=== PATIENT | male | born 1960 | race African-American/Black ===

== ENCOUNTER 2017-03-16 14:26 | Observation (INO) | payer OTHER ==
[2017-03-16] VITALS (7 sets, daily range): BP systolic 136–152; BP diastolic 87–109; PULSE 54–68; RESP 18; TEMP 98.3–98.4; O2SAT 97–98
[~2017-03-16] VITALS: Ht 180.3 cm; Wt 95.0 kg
[~2017-03-16 14:26] MED LIST: ALLO100T PO; AMLO10 PO; GABA300C5 PO; LEVO100T5 PO; METO100T PO; VIAG100T PO
[2017-03-16] MEDS ORDERED: SODIUM CHLORIDE 0.9% FLUSH 10 ML FLUSH IVF PRN (14:45)
--- NOTE | 2017-03-16 14:50 | PD ---
HPI Chief Complaint: Chest Pain Time Seen by Provider: 15:58 Travel History International Travel<30 days: No Contact w/Intl Traveler<30days: No Traveled to known affect area: No History of Present Illness HPI 56- year old male brought to the ED by EVAC complaining of chest pain. The patient reports that his chest pain started while at work around noon. He reports at that time he felt a chest tightness, started with perfuse sweating, and shortness of breath. He reports he then went to the ID who said he should be brought here. While at the ID the patient received one nitroglycerin and four baby aspirin. The patient reports currently he does not have any chest tightness or shortness of breath. The patient received another nitroglycerin by EVAC en route to the hospital. He reports his chest pain is a 2/10 currently. The patient reports he has a medical history of HTN and enlarged heart. He reports occasional marijuana use, but denies any alcohol or smoking. PFSH Past Medical History Heart Rhythm Problems: Yes (MURMUR ) Cancer: No Cardiac Catheterization: No Cardiomyopathy: Yes Cardiovascular Problems: Yes High Cholesterol: No Chest Pain: Yes Congestive Heart Failure: No Coronary Artery Disease: Yes Diabetes: No Diminished Hearing: No Endocrine: No Genitourinary: No Heparin Induced Thrombocytopen: No Hypertension: Yes Immune Disorder: Yes (g6pd(SICLE CEWLL TRAIT) ) Musculoskeletal: No Neurologic: Yes Psychiatric: No Reproductive: No Respiratory: No Past Surgical History Coronary Artery Bypass Graft: No Other Surgery: Yes Family History Family Myocardial Infarction: Yes Social History Alcohol Use: Yes (OCC BEER) Tobacco Use: No Substance Use: No (MARAJUIANA ) Allergies-Medications (Allergen,Severity, Reaction): Coded Allergies: No Known Allergies (Unverified , 03/16/17) Reported Meds & Prescriptions Reported Meds & Active Scripts Active Reported Metoprolol Tartrate 100 Mg Tab 100 Mg PO BID Viagra (Sildenafil Citrate) 100 Mg Tab 100 Mg PO DAILY PRN Norvasc (Amlodipine Besylate) 10 Mg Tab 10 Mg PO DAILY Levothyroxine (Levothyroxine Sodium) 100 Mcg Tab 100 Mcg PO DAILY Gabapentin 300 Mg Cap 300 Mg PO TID Allopurinol 100 Mg Tab 100 Mg PO DAILY Review of Systems General / Constitutional: No: Fever, Chills, Weight Gain, Weight Loss, Other Eyes: No: Diploplia, Blurred Vision, Photophobia, Drainage, Redness, Foreign Body Sensation, Pain, Tearing, Blind Spots, Visual changes, Blindness, Other HENT: Positive: Headaches, No: Vertigo, Lightheadedness, Sore Throat, Rhinitis , Rhinorrhea, Congestion, Nosebleed, Neck Stiffness, Neck Pain, Masses, Gingival Bleeding, Dental Difficulties, Ear Discharge, Earache, Other Cardiovascular: Positive: Chest Pain or Discomfort, No: Palpitations, Irregular Rhythm, Tachycardia, Diaphoresis, Syncope, Dyspnea on exertion, Varicosities, Edema, Cyanosis, Varicosities, Phlebitis, Claudication, Other Respiratory: No: Cough, Shortness of Breath, Wheezing, Sneezing, Orthopnea, Hemoptysis, Stridor, Night Sweats, Pleuritic Pain, Other Gastrointestinal: No: Nausea, Vomiting, Diarrhea, Abdominal Pain, Hematemesis, Hematochezia, Constipation, Changes in Bowel Habits, Indigestion, Dysphagia, Loss of Appetite, Other Genitourinary: No: Urgency, Frequency, Dysuria, Nocturia, Hematuria, Decreased Urinary Output, Oliguria, Hesitancy, Dribbling, Incontinence, Pelvic Pain, Flank Pain, Dyspareunia, Discharge, Dysmenorrhea, Menorrhagia, Metorrhagia, Vaginal Bleeding, Other Musculoskeletal: No: Myalgias, Arthralgias, Limited ROM, Weakness, Cramping, Edema, Pain, Atrophy, Other Skin: No Rash, No Itching, No Dryness, No Lumps, No Hives, No Change in Pigmentation, No Change in nails, No Alopecia, No Lesions, No Breast Lumps, No Breast Tenderness, No Breast Swelling, No Other Neurologic: No: Weakness, Dizziness, Syncope, Focal Abnormalities, Coordination Problem, Tremor, Ataxia, Headache, Change in Mentation, Slurred Speech, Paresthesia, Incontinence, Seizures, Sensory Disturbance, Other Psychiatric: No: Anxiety, Depression, Suicidal Ideations, Disorder of Thought, Mood Disorder, Substance Abuse, Homicidal Ideation, Other Endocrine: No: Heat Intolerance, Cold Intolerance, Polyuria, Polydipsia, Other Hematologic/Lymphatic: No: Easy Bruising, Lymph Node Enlargement, Other Physical Exam Narrative GENERAL: SKIN: Warm and dry. HEAD: Atraumatic. Normocephalic. EYES: Pupils equal and round. No scleral icterus. No injection or drainage. ENT: No nasal bleeding or discharge. Mucous membranes pink and moist. Tongue is midline. No uvula deviation. NECK: Trachea midline. No JVD. CARDIOVASCULAR: Regular rate and rhythm. No S3, S4, murmurs, rubs, clicks, or gallops. Chest pain is not reproducible with touch. RESPIRATORY: No accessory muscle use. Clear to auscultation. Breath sounds equal bilaterally. GASTROINTESTINAL: Abdomen soft, non-tender, nondistended. Hepatic and splenic margins not palpable. MUSCULOSKELETAL: Tender to palpation over chest. Extremities without clubbing, cyanosis, or edema. No obvious deformities. Full range of motion of the upper and lower extremities bilaterally. 2+ pulses bilaterally. NEUROLOGICAL: Awake and alert. No obvious cranial nerve deficits. Motor grossly within normal limits. Five out of 5 muscle strength in the arms and legs. Normal speech. PSYCHIATRIC: Appropriate mood and affect; insight and judgment normal. Data Data Last Documented VS Vital Signs Date Time Temp Pulse Resp B/P Pulse Ox O2 Delivery O2 Flow Rate FiO2 03/16/17 14:43 62 18 99 Room Air 03/16/17 14:33 98.3 142/87 Orders Electrocardiogram (03/16/17 14:35) Basic Metabolic Panel (Bmp) (03/16/17 14:35) Ckmb (Isoenzyme) Profile (03/16/17 14:35) Complete Blood Count With Diff (03/16/17 14:35) Magnesium (Mg) (03/16/17 14:35) Prothrombin Time / Inr (Pt) (03/16/17 14:35) Act Partial Throm Time (Ptt) (03/16/17 14:35) Troponin I (03/16/17 14:35) Lipase (03/16/17 14:35) Chest, Single Ap (03/16/17 14:35) Ecg Monitoring (03/16/17 14:35) Bilateral Bp Monitoring (03/16/17 14:35) Iv Access Insert/Monitor (03/16/17 14:35) Oximetry (03/16/17 14:35) Oxygen Administration (03/16/17 14:35) Sodium Chloride 0.9% Flush (Ns Flush) (03/16/17 14:45) B-Type Natriuretic Peptide (03/16/17 14:36) Morphine Inj (Morphine Inj) (03/16/17 15:30) Ondansetron Inj (Zofran Inj) (03/16/17 15:30) CKMB (03/16/17 14:50) CKMB% (03/16/17 14:50) Admit Order (Ed Use Only) (03/16/17 15:56) Labs Laboratory Tests Test 03/16/17 14:50 White Blood Count 7.8 TH/MM3 Red Blood Count 4.52 MIL/MM3 Hemoglobin 13.7 GM/DL Hematocrit 41.2 % Mean Corpuscular Volume 91.1 FL Mean Corpuscular Hemoglobin 30.4 PG Mean Corpuscular Hemoglobin 33.4 % Concent Red Cell Distribution Width 13.4 % Platelet Count 220 TH/MM3 Mean Platelet Volume 10.7 FL Neutrophils (%) (Auto) 72.3 % Lymphocytes (%) (Auto) 18.3 % Monocytes (%) (Auto) 5.7 % Eosinophils (%) (Auto) 2.9 % Basophils (%) (Auto) 0.8 % Neutrophils # (Auto) 5.7 TH/MM3 Lymphocytes # (Auto) 1.4 TH/MM3 Monocytes # (Auto) 0.4 TH/MM3 Eosinophils # (Auto) 0.2 TH/MM3 Basophils # (Auto) 0.1 TH/MM3 CBC Comment DIFF FINAL Differential Comment Prothrombin Time 11.3 SEC Prothromb Time International 1.0 RATIO Ratio Activated Partial 28.3 SEC Thromboplast Time Sodium Level 141 MEQ/L Potassium Level 3.8 MEQ/L Chloride Level 105 MEQ/L Carbon Dioxide Level 29.2 MEQ/L Anion Gap 7 MEQ/L Blood Urea Nitrogen 18 MG/DL Creatinine 2.09 MG/DL Estimat Glomerular Filtration 40 ML/MIN Rate Random Glucose 89 MG/DL Calcium Level 8.6 MG/DL Magnesium Level 2.2 MG/DL Total Creatine Kinase 194 U/L Creatine Kinase MB 2.6 NG/ML Troponin I 0.02 NG/ML B-Type Natriuretic Peptide 40 PG/ML Lipase 132 U/L [facility] Medical Decision Making Medical Screen Exam Complete: Yes Emergency Medical Condition: Yes Medical Record Reviewed: Yes Interpretation(s) CBC & BMP Diagram 03/16/17 14:50 troponin and CKMB negative Last Impressions Chest X-Ray 03/16/17 8025 Signed Impressions: Service Date/Time: Thursday, March 16, 2017 14:42 - CONCLUSION: Mild left ventricular hypertrophy otherwise negative. Kodi Rowan MD FACR lipase WNL EKG shows no changes from prior in 2016. Read by me and attending. Differential Diagnosis Chest pain versus ACS versus [place] versus costochondritis versus angina Narrative Course 56-year-old male that presents to the ED for evaluation of chest pain. Patient was properly examined and was found to have signs and symptoms concerning for cardiac chest pain. He does have risk factors. Case discussed in my attending Dr Dubois who agrees with plan. Labs and imaging were essentially negative. Patient was already given aspirin and nitroglycerin and is currently for the most part chest pain free. Patient was told of admission for chest pain center and agrees with this plan. Patient was admitted for chest pain center. Procedures EKG Prior to Arrival: No Diagnosis Primary Impression: Chest pain Qualified Code: R07.9 - Chest pain, unspecified type Admitting Information Admitting Physician Requests: Observation Connor Banegas Mar 16, 2017 14:50
[2017-03-16 15:22] LABS: AUTOMATED NEUTROPHIL # 5.7 TH/MM3 (1.8-7.7); BASOPHIL # 0.1 TH/MM3 (0-0.2); BASOPHIL % 0.8 % (0.0-2.0); EOSINOPHIL # 0.2 TH/MM3 (0-0.4); EOSINOPHIL % 2.9 % (0.0-4.0); HEMATOCRIT 41.2 % (39.0-51.0); HEMO FLAGS DIFF FINAL; LYMPH % 18.3 % (9.0-44.0); LYMPHOCYTE # 1.4 TH/MM3 (1.0-4.8); MEAN CELL VOLUME 91.1 FL (80.0-100.0); MEAN CORPUSCULAR HEMOGLOBIN 30.4 PG (27.0-34.0); MEAN CORPUSCULAR HGB CONC 33.4 % (32.0-36.0); MONO % 5.7 % (0.0-8.0); NEUT % 72.3 % (16.0-70.0); PLATELET COUNT 220 TH/MM3 (150-450); RED BLOOD COUNT 4.52 MIL/MM3 (4.50-5.90); RED CELL DISTRIBUTION WIDTH 13.4 % (11.6-17.2); WHITE BLOOD COUNT 7.8 TH/MM3 (4.0-11.0)
[2017-03-16] MEDS ORDERED: MORPHINE SULFATE 4 MG/ML INJ IV PUSH ONE (15:30)
[2017-03-16] MEDS ORDERED: ONDANSETRON HCL 4 MG/2 ML VIAL IV PUSH ONE (15:30)
[2017-03-16 15:31] LABS: ANION GAP 7 MEQ/L (5-15); BICARBONATE 29.2 MEQ/L (21.0-32.0); BLOOD UREA NITROGEN 18 MG/DL (7-18); CHLORIDE 105 MEQ/L (98-107); GLOMERULAR FILTRATION RATE 40 ML/MIN (>89); MAGNESIUM 2.2 MG/DL (1.5-2.5); POTASSIUM 3.8 MEQ/L (3.5-5.1); SODIUM (NA) 141 MEQ/L (136-145)
[2017-03-16 15:32] LABS: APTT (PATIENT) 28.3 SEC (24.3-30.1); PROTHROMBIN TIME - PATIENT 11.3 SEC (9.8-11.6)
[2017-03-16 15:35] LABS: CREATINE KINASE 194 U/L (39-308)
--- NOTE | 2017-03-16 15:35 | RADRPT ---
EXAM DATE/TIME: 03/16/2017 14:42 [facility] COMPARISON: CHEST SINGLE AP, November 08, 2015, 13:45. INDICATIONS : Chest pain since this afternoon. MEDICAL HISTORY : Hypertension. Hypertension. SURGICAL HISTORY : None. ENCOUNTER: Initial ACUITY: 1 day PAIN SCORE: 7/10 LOCATION: Bilateral chest FINDINGS: A single view of the chest demonstrates the lungs to be symmetrically aerated without evidence of mas s, infiltrate or effusion. Mild prominence the cardiac silhouette.. Osseous structures are intact. CONCLUSION: Mild left ventricular hypertrophy otherwise negative. Kodi Rowan MD FACR on March 16, 2017 at 15:33 Board Certified Radiologist. This report was verified electronically.
[2017-03-16 15:47] LABS: CKMB 2.6 NG/ML (0.5-3.6)
--- NOTE | 2017-03-16 16:14 | PD ---
Data Data Last Documented VS Vital Signs Date Time Temp Pulse Resp B/P Pulse Ox O2 Delivery O2 Flow Rate FiO2 03/16/17 14:43 62 18 99 Room Air 03/16/17 14:33 98.3 142/87 Orders Electrocardiogram (03/16/17 14:35) Basic Metabolic Panel (Bmp) (03/16/17 14:35) Ckmb (Isoenzyme) Profile (03/16/17 14:35) Complete Blood Count With Diff (03/16/17 14:35) Magnesium (Mg) (03/16/17 14:35) Prothrombin Time / Inr (Pt) (03/16/17 14:35) Act Partial Throm Time (Ptt) (03/16/17 14:35) Troponin I (03/16/17 14:35) Lipase (03/16/17 14:35) Chest, Single Ap (03/16/17 14:35) Ecg Monitoring (03/16/17 14:35) Bilateral Bp Monitoring (03/16/17 14:35) Iv Access Insert/Monitor (03/16/17 14:35) Oximetry (03/16/17 14:35) Oxygen Administration (03/16/17 14:35) Sodium Chloride 0.9% Flush (Ns Flush) (03/16/17 14:45) B-Type Natriuretic Peptide (03/16/17 14:36) Morphine Inj (Morphine Inj) (03/16/17 15:30) Ondansetron Inj (Zofran Inj) (03/16/17 15:30) CKMB (03/16/17 14:50) CKMB% (03/16/17 14:50) Admit Order (Ed Use Only) (03/16/17 15:56) Labs Laboratory Tests Test 03/16/17 14:50 White Blood Count 7.8 TH/MM3 Red Blood Count 4.52 MIL/MM3 Hemoglobin 13.7 GM/DL Hematocrit 41.2 % Mean Corpuscular Volume 91.1 FL Mean Corpuscular Hemoglobin 30.4 PG Mean Corpuscular Hemoglobin 33.4 % Concent Red Cell Distribution Width 13.4 % Platelet Count 220 TH/MM3 Mean Platelet Volume 10.7 FL Neutrophils (%) (Auto) 72.3 % Lymphocytes (%) (Auto) 18.3 % Monocytes (%) (Auto) 5.7 % Eosinophils (%) (Auto) 2.9 % Basophils (%) (Auto) 0.8 % Neutrophils # (Auto) 5.7 TH/MM3 Lymphocytes # (Auto) 1.4 TH/MM3 Monocytes # (Auto) 0.4 TH/MM3 Eosinophils # (Auto) 0.2 TH/MM3 Basophils # (Auto) 0.1 TH/MM3 CBC Comment DIFF FINAL Differential Comment Prothrombin Time 11.3 SEC Prothromb Time International 1.0 RATIO Ratio Activated Partial 28.3 SEC Thromboplast Time Sodium Level 141 MEQ/L Potassium Level 3.8 MEQ/L Chloride Level 105 MEQ/L Carbon Dioxide Level 29.2 MEQ/L Anion Gap 7 MEQ/L Blood Urea Nitrogen 18 MG/DL Creatinine 2.09 MG/DL Estimat Glomerular Filtration 40 ML/MIN Rate Random Glucose 89 MG/DL Calcium Level 8.6 MG/DL Magnesium Level 2.2 MG/DL Total Creatine Kinase 194 U/L Creatine Kinase MB 2.6 NG/ML Troponin I 0.02 NG/ML B-Type Natriuretic Peptide 40 PG/ML Lipase 132 U/L [facility] Supervised Visit with RITA: Yes Narrative Course The history, exam, and medical decision-making in the associated midlevel provider note were completed with my assistance. I reviewed and agree with the findings presented. I attest that I had a [id number] encounter with the patient on the same day, and personally performed and documented my assessment and findings in the medical record. *My assessment and Findings: This is a 56-year-old male who presents to the emergency department with chest discomfort that started at work today with diaphoresis and shortness of breath. Patient has an abnormal EKG which is unchanged from prior with ST depressions in the lateral leads. Troponin is normal. His last stress test was in November 2015. I think he requires serial cardiac enzymes and possible further risk stratification given the description of his symptoms. Diagnosis Primary Impression: Chest pain Qualified Code: R07.9 - Chest pain, unspecified type Carmita Dubois MD Mar 16, 2017 16:14
[2017-03-16] MEDS ORDERED: NITROGLYCERIN 0.4 MG SL 25 TABS/BTL SL PRN (16:30)
[2017-03-16] MEDS ORDERED: ONDANSETRON HCL 4 MG/2 ML VIAL IV PRN (16:30)
[2017-03-16] MEDS ORDERED: ACETAMINOPHEN 500 MG CPLT PO PRN (16:30)
--- NOTE | 2017-03-16 18:19 | HHI.HP ---
HPI Primary Care Physician [facility] Chief Complaint Chest pain History of Present Illness 56-year-old male with history of hypertension, renal insufficiency, and cardiomegaly presents to the emergency room for further evaluation of chest pain. Onset 12 PM. Location left anterior chest. Characterized as tightness. Severity 8/10. No radiation of pain. Duration 812 minutes. Associated symptoms included nausea, diaphoresis, and shortness of breath. Denies vomiting. No known precipitating factors. Relieving factors include aspirin and time. Denies any current chest pain or pressure. Endorses similar pain in the past. Drove himself to [facility] for [facility]. [facility] to transport to ER. Review of Systems General: Fatigue approximately 6 weeks, otherwise in his general health. No recent illness, fever, chills, or use of antibiotics. HEENT: Current headache relates to nitroglycerin given by EMS. No vision changes, no nasal congestion or drainage, or history of frequent headaches. CV: As stated above. No current chest tightness, CP, or pressure. No palpitations or dizziness. RESP: No SOB, cough, wheeze, history or COPD or asthma. GI: No nausea, vomiting, bowel changes, diarrhea, constipation, pain, distention , melena, or blood in the stool. No change in appetite, no unintentional weight gain or weight loss. : No dysuria, urgency, or frequency EXT: Remote injury to left hand due to electrocution with residual weakness in third, fourth, and fifth digits. No lower leg edema, no paraesthesias MS: No discomfort, change in Edmundo, injury, or trauma. NEURO: Syncopal event 2 weeks ago after exiting shower. No precipitating symptoms, no past syncopal events, stating "I woke up on the floor and didn't know what happened." No change in memory, difficulty with balance, LOC, motor/ sensory deficits PSYCH: No anxiety, depression, or relational stress Past Family Social History Allergies: Coded Allergies: No Known Allergies (Unverified , 03/16/17) Past Medical History Hypertension, cardiomegaly, hypothyroidism, renal insufficiency, gout, left hand electrocution Past Surgical History Left Achillis tendon repair Reported Medications Active Reported Metoprolol Tartrate 100 Mg Tab 100 Mg PO BID Viagra (Sildenafil Citrate) 100 Mg Tab 100 Mg PO DAILY PRN Norvasc (Amlodipine Besylate) 10 Mg Tab 10 Mg PO DAILY Levothyroxine (Levothyroxine Sodium) 100 Mcg Tab 100 Mcg PO DAILY Allopurinol 100 Mg Tab 100 Mg PO DAILY Active Ordered Medications Current Medications Medications (Trade) Dose Ordered Sig/Harjit Route Start Time Stop Time Status Last Admin (NS Flush) 2 ml UNSCH PRN IVF 03/16/17 14:45 (Tylenol) 500 mg Q4H PRN PO 03/16/17 16:30 (Zofran Inj) 4 mg Q6H PRN IV 03/16/17 16:30 (Nitrostat Sl) 0.4 mg Q5M PRN SL 03/16/17 16:30 (Aspirin) 325 mg DAILY PO 03/17/17 09:00 Family History Noncontributory for early onset cardiovascular disease. Father and mother developed coronary artery disease in their late 60s. Social History Known hypertension. No known diabetes, hyperlipidemia, or personal coronary artery disease. Lifelong nonsmoker. Denies any alcohol use. Endorses occasional marijuana use. Endorses an active lifestyle. 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 Past cardiac testing 11/09/2015 Nuclear ETT-unremarkable, no signs of stress-induced ischemia. 07/12/2014 Nuclear ETTno infarct, ischemia, or focal wall motion abnormality No past cardiac catheterizations. Physical Exam Vital Signs Vital Signs Date Time Temp Pulse Resp B/P Pulse Ox O2 Delivery O2 Flow Rate FiO2 03/16/17 17:23 18 03/16/17 16:46 68 18 150/109 98 Room Air 141/92 03/16/17 16:44 68 18 150/109 98 Room Air 03/16/17 16:24 21 03/16/17 14:43 62 18 99 Room Air 03/16/17 14:41 99 Room Air 03/16/17 14:33 98.3 66 18 142/87 97 Physical Exam GENERAL: Alert WN, WD, NAD, pleasant, male HEAD: NC, AT EYES: Sclera clear, conjunctiva without injection, pupils equal and round ENT: Mucous membranes pink and moist, no nasal discharge or bleeding CV: RRR, 2/6 systolic murmur, no rub, no gallop, no JVD, S1-S2 no S3-S4. RESP: Clear lungs throughout bilateral, no crackles, wheeze, rhonchi, symmetrical chest rise, nonlabored, able to speak in full sentences ABD: Soft, NT, ND, no masses, positive bowel tones EXT: Pulses +24, no dependent edema MS: Normal tone 4 extremities, nontender, no obvious deformities, full range of motion, slight limitation with movement to left third, fourth, fifth digits NEURO: CN II through CN XII grossly intact, motor strength 5/5, PSYCH: A+O 3, pleasant affect, appropriate speech, appropriate mood and affect , insight and judgment SKIN: Normal turgor, normal texture, no lesions, no rashes, brisk cap refill, even hair distribution Laboratory Laboratory Tests Test 03/16/17 14:50 White Blood Count 7.8 Red Blood Count 4.52 Hemoglobin 13.7 Hematocrit 41.2 Mean Corpuscular Volume 91.1 Mean Corpuscular Hemoglobin 30.4 Mean Corpuscular Hemoglobin 33.4 Concent Red Cell Distribution Width 13.4 Platelet Count 220 Mean Platelet Volume 10.7 Neutrophils (%) (Auto) 72.3 Lymphocytes (%) (Auto) 18.3 Monocytes (%) (Auto) 5.7 Eosinophils (%) (Auto) 2.9 Basophils (%) (Auto) 0.8 Neutrophils # (Auto) 5.7 Lymphocytes # (Auto) 1.4 Monocytes # (Auto) 0.4 Eosinophils # (Auto) 0.2 Basophils # (Auto) 0.1 CBC Comment DIFF FINAL Differential Comment Prothrombin Time 11.3 Prothromb Time International 1.0 Ratio Activated Partial 28.3 Thromboplast Time Sodium Level 141 Potassium Level 3.8 Chloride Level 105 Carbon Dioxide Level 29.2 Anion Gap 7 Blood Urea Nitrogen 18 Creatinine 2.09 Estimat Glomerular Filtration 40 Rate Random Glucose 89 Calcium Level 8.6 Magnesium Level 2.2 Total Creatine Kinase 194 Creatine Kinase MB 2.6 Troponin I 0.02 B-Type Natriuretic Peptide 40 Lipase 132 Result Diagram: 03/16/17 1450 03/16/17 1450 Imaging Last Impressions Chest X-Ray 03/16/17 1435 Signed Impressions: Service Date/Time: Thursday, March 16, 2017 14:42 - CONCLUSION: Mild left ventricular hypertrophy otherwise negative. Kodi Rowan MD FACR Course EKG Normal sinus rhythm, criteria for LVH, anterior lateral changes most likely related to LVH Assessment and Plan Assessment and Plan #1 Chest painadmitted to chest pain center. Ruled out with 3 sets of EKGs, cardiac enzymes, and monitor overnight. Will be seen and evaluated by Dr. Kristine Mukherjee in a.m. Most likely complete exercise stress test in the a.m. This is been discussed with patient he is agreeable to plan of care. #2 Hypertensioncontinue amlodipine, encouraged low sodium diet and increasing his daily activity as able #3 Cardiomegaly-continue metoprolol #4 HypothyroidismTSH lab draw, continue levothyroxine #5 Goutcontinue allopurinol #6 Renal insufficiencyslightly elevated from last documented creatinine at this facility, patient states current creatinine level is his baseline. Follow with PCP. #7 Syncopal episode-episode occurred 2 weeks ago, denies any additional syncopal episodes, near syncopal episodes, or dizziness, follow-up with PCP. Kathleen Wells Mar 16, 2017 18:19
[2017-03-16 19:08] LABS: CREATINE KINASE 131 U/L (39-308)
[2017-03-16 19:20] LABS: CKMB 2.2 NG/ML (0.5-3.6)
[2017-03-16] MEDS: METOPROLOL TARTRATE 100 MG TAB PO SCH (20:42)
[2017-03-16 22:08] LABS: CREATINE KINASE 166 U/L (39-308)
[2017-03-16 22:21] LABS: CKMB 2.3 NG/ML (0.5-3.6)
[2017-03-17] VITALS: BP 160/70; PULSE 74; RESP 18; TEMP 98.4; O2SAT 98
[2017-03-17 04:09] VITALS: BP 138/95; PULSE 67; RESP 18; TEMP 98.1; O2SAT 97
[2017-03-17 05:38] VITALS: O2SAT 98
[2017-03-17] MEDS ORDERED: LEVOTHYROXINE SODIUM 100 MCG TAB PO SCH (06:00)
[2017-03-17 07:20] VITALS: PULSE 50
[2017-03-17 07:25] VITALS: BP 142/91; PULSE 51; RESP 16; TEMP 98.5; O2SAT 97
[2017-03-17] MEDS ORDERED: ALLOPURINOL 100 MG TAB PO SCH (09:00)
[2017-03-17] MEDS: METOPROLOL TARTRATE 100 MG TAB PO SCH (09:00)
[2017-03-17] MEDS ORDERED: ASPIRIN 325 MG TAB PO SCH (09:00)
[2017-03-17] MEDS ORDERED: MORPHINE SULFATE 4 MG/ML INJ IV PUSH ONE (09:00)
[2017-03-17] MEDS ORDERED: REGADENOSON INJ 0.4 MG/5 ML SYR ONE ×2 (12:03→12:12)
--- NOTE | 2017-03-17 13:45 | RADRPT ---
EXAM DATE/TIME: 03/17/2017 11:24 [facility] COMPARISON: MYOCARDIAL PERF TREADMILL SPECT, GATED W/EF, November 09, 2015, 8:32. INDICATIONS : Angina. DOSE: 27.2 mCi Tc99m Myoview at stress. 8.6 mCi Tc99m Myoview at rest. 0.4 mg Lexiscan STRESS SYMPTOMS: heart racing and dyspnea. EJECTION FRACTION: 52% MEDICAL HISTORY : Hypertension. SURGICAL HISTORY : None. ENCOUNTER: Initial ACUITY: 1 day PAIN SCALE: 1/10 LOCATION: Bilateral chest TECHNIQUE: The patient underwent pharmacologic stress with infusion of prescribed dose. Continuous ECG tracing was monitored during stress. Gated SPECT imaging was performed after stress and conventional SPECT i maging was performed at rest. The examination was performed on a SPECT/CT scanner, both attenuation and non-corrected datasets were reviewed. FINDINGS: DISTRIBUTION: The maximum perfused segment at stress is in the anterolateral wall. PERFUSION STUDY: The pattern of perfusion at stress is within normal limits. GATED STUDY: There is intact wall motion and thickening without hypokinetic or dyskinetic segments. CONCLUSION: 1. No reversible perfusion defect to suggest stress-induced myocardial ischemia RISK CATEGORY: Low (<1% Annual Mortality Rate) Viktor Rowan MD on March 17, 2017 at 13:42 Board Certified Radiologist. This report was verified electronically.
--- NOTE | 2017-03-17 14:19 | HHI.DCPOC ---
Discharge Care Plan Diagnosis: (1) Chest pain (2) Hypertension (3) Renal insufficiency (4) Hypothyroidism Goals to Promote Your Health * To prevent worsening of your condition and complications * To maintain your health at the optimal level Directions to Meet Your Goals Take your medications as prescribed Follow your dietary instruction Follow activity as directed Keep your appointments as scheduled Take your immunizations and boosters as scheduled If your symptoms worsen call your PCP, if no PCP go to Urgent Care Center or Emergency Room Smoking is Dangerous to Your Health. Avoid second hand smoke Call the 24-hour hour crisis hotline for domestic abuse at Doug Avila Mar 17, 2017 14:19
--- NOTE | 2017-03-17 16:51 | TR ---
Date Performed: 03/17/2017 Time Performed: 12:09:52 DOCTOR: Kristine Mukherjee DRUG LIST: CLINICAL HISTORY: REASON FOR TEST: REASON FOR ENDING: OBSERVATION: CONCLUSION: Lexiscan stress test was performed under standard four minute protocol. Radionuclid e was injected one minute prior to ending the test. No electrocardiographic abormalities were present to suggest ischemia. Nuclear imaging and interpretation are pending. COMMENTS:
--- NOTE | 2017-03-17 16:52 | EKG ---
Date Performed: 03/16/2017 Time Performed: 18:24:42 PTAGE: 56 years EKG: SINUS BRADYCARDIA LEFT VENTRICULAR HYPERTROPHY AND ST-T CHANGE POSSIBLE SEPTAL MYOCARDIAL I NFARCTION ABNORMAL ECG Since previous tracing, no significant change noted NO PREVIOUS TRACING DOCTOR: Kristine Mukherjee Interpretating Date/Time 03/17/2017 16:51:48
--- NOTE | 2017-03-17 16:53 | EKG ---
Date Performed: 03/16/2017 Time Performed: 21:12:29 PTAGE: 56 years EKG: SINUS BRADYCARDIA LEFT VENTRICULAR HYPERTROPHY AND ST-T CHANGE POSSIBLE SEPTAL MYOCARDIAL I NFARCTION ABNORMAL ECG Since PREVIOUS TRACING , no significant change noted PREVIOUS TRACIN03/16/2017 21.11 DOCTOR: Kristine Mukherjee Interpretating Date/Time 03/17/2017 16:52:20
--- NOTE | 2017-03-18 15:58 | EKG ---
Date Performed: 03/16/2017 Time Performed: 14:34:12 PTAGE: 56 years EKG: Sinus rhythm LEFT VENTRICULAR HYPERTROPHY AND ST-T CHANGE POSSIBLE SEPTAL MYOCARDIAL INFARCTION ABNORMAL ECG NO PREVIOUS TRACING DOCTOR: Melchor Marquez Interpretating Date/Time 03/18/2017 15:55:21
== END 2017-03-17 15:21 | disposition home or self-care (01) ==
LOC: NEPE 14:26 → UNDOADMOB 15:58 → NEDA 15:58 → NEPGCP 17:47
PROVIDERS: ADMIT Internal Medicine Cardiovascular Disease; ATTEND Internal Medicine Cardiovascular Disease
DX: R07.89 Other chest pain (principal); R94.31 Abnormal electrocardiogram [ECG] [EKG]; I10 Essential (primary) hypertension; I25.10 Atherosclerotic heart disease of native coronary artery without angina pectoris; F12.90 Cannabis use, unspecified, uncomplicated; N28.9 Disorder of kidney and ureter, unspecified; I42.9 Cardiomyopathy, unspecified; E03.9 Hypothyroidism, unspecified; M10.9 Gout, unspecified
CPT/HCPCS: 71010; 78452; 80048; 82550; 82552; 83690; 83735; 83880; 84443; 84484; 85025; 85610; 85730; 93005; 93017; 96374; 96375; 99285; A9502; G0378; J2270; J2405; J2785